=== PATIENT | female | born 1985 | race Hispanic/Latino ===

== ENCOUNTER 2021-10-16 14:31 | Emergency (ER) | payer SELFPAY ==
[2021-10-16] MEDS ORDERED: Bupivacaine 0.25% HCL 30 ML VIAL ONE (16:08)
[2021-10-16] MEDS ORDERED: Acetaminophen/Codeine 30-300mg Tablet ONE (16:23)
== END 2021-10-16 16:31 | disposition home or self-care (01) ==
LOC: CSHERS 14:31
DX: K02.9 Dental caries, unspecified (principal); E78.00 Pure hypercholesterolemia, unspecified; K21.9 Gastro-esophageal reflux disease without esophagitis; F17.210 Nicotine dependence, cigarettes, uncomplicated
CPT/HCPCS: 96372; 99282; S0020

== ENCOUNTER 2024-10-15 12:25 | Emergency (ER) | payer OTHER ==
[2024-10-15] MEDS ORDERED: Dexamethasone 10 MG/ML VIAL ONE (12:57)
[2024-10-15] MEDS ORDERED: Ipratropium/Albuterol 3 ML NEB ONE (12:59)
[2024-10-15 13:42] LABS: #Basophils 0.03 10x3/uL (0.0-0.2); #Eosinophils 0.12 10x3/uL (0.0-0.5); #Monocytes 0.55 10x3/uL (0.0-1.1); #Neutrophils 10.19 10x3/uL (1.5-8.4); %Basophils 0.2 % (0.0-2.0); %Lymphocytes 13.6 % (18.0-47.0); %Monocytes 4.4 % (0.0-10.0); %Neutrophils 80.6 % (40.0-75.0); Hematocrit 42.3 % (34.9-44.5); Mean Corpuscular HGB CONC 33.1 g/dL (32.0-36.0); Mean Corpuscular Hemoglobin 29.9 pg (27.0-33.0); Mean Corpuscular Volume 90.2 fL (81.6-98.3); Mean Platelet Volume 8.9 fL (7.4-10.4); Platelet Count 352 10x3/uL (150-450); RBC Distribution Width 13.8 % (11.5-14.5); Red Blood Cell (RBC) Count 4.69 10x6/uL (3.90-5.03); White Blood Cell (WBC) Count 12.6 10x3/uL (3.5-10.5)
[2024-10-15 13:53] LABS: ALT (SGPT) 15 U/L (8-55); AST (SGOT) 12 U/L (5-34); Albumin 3.9 g/dL (3.5-5.0); Alkaline Phosphatase 69 U/L (40-110); Anion Gap 13 mmol/L (10-20); BUN (Urea Nitrogen) 9 mg/dL (7.0-18.7); Bilirubin, Total 0.4 mg/dL (0.2-1.2); Calc. Creatinine Clearance 0 mL/min (70-130); Calcium 9.1 mg/dL (7.8-10.44); Carbon Dioxide 24 mmol/L (22-29); Chloride 106 mmol/L (98-107); Estimated GFR 85; Globulin 3.7 g/dL (2.4-3.5); Glucose 93 mg/dL (70-105); Potassium 3.7 mmol/L (3.5-5.1); Protein, Total 7.6 g/dL (6.0-8.3); Sodium 139 mmol/L (136-145)
[2024-10-15] MEDS ORDERED: Ketorolac Tromethamine 30 MG (1 mL) VIAL ONE (14:36)
[2024-10-15] MEDS ORDERED: Metoclopramide HCl 10 MG (2 mL) VIAL ONE (14:36)
== END 2024-10-15 16:46 | disposition home or self-care (01) ==
LOC: CSHERS 12:25
DX: J20.9 Acute bronchitis, unspecified (principal); J45.901 Unspecified asthma with (acute) exacerbation; F17.210 Nicotine dependence, cigarettes, uncomplicated
CPT/HCPCS: 36415; 71045; 80053; 85025; 87428; 96361; 96372; 96374; 96375; J1100; J1885; J2765; J7620